=== PATIENT | male | born 1975 | race Caucasian/White ===

== ENCOUNTER 2016-07-03 15:02 | Emergency (ER) | payer SELFPAY | END 2016-07-03 18:02 | disposition home or self-care (01) | LOC: D.ER 15:02 | DX: G89.29 Other chronic pain (principal); M54.2 Cervicalgia; M54.5 Low back pain; F17.200 Nicotine dependence, unspecified, uncomplicated ==

== ENCOUNTER 2016-07-05 16:59 | Emergency (ER) | payer MEDICAID | END 2016-07-05 18:37 | disposition home or self-care (01) | LOC: D.ER 16:59 | DX: S20.219A Contusion of unspecified front wall of thorax, initial encounter (principal); W11.XXXA Fall on and from ladder, initial encounter; Y93.89 Activity, other specified; Y92.019 Unspecified place in single-family (private) house as the place of occurrence of the external cause; F17.200 Nicotine dependence, unspecified, uncomplicated ==

== ENCOUNTER 2016-07-08 17:17 | Emergency (ER) | payer MEDICAID | END 2016-07-08 18:43 | disposition home or self-care (01) | LOC: D.ER 17:17 | DX: M94.0 Chondrocostal junction syndrome [Tietze] (principal) ==

== ENCOUNTER 2016-07-20 18:51 | Emergency (ER) | payer MEDICAID | END 2016-07-21 00:15 | disposition home or self-care (01) | LOC: D.ER 18:51 | DX: M54.2 Cervicalgia (principal); M54.9 Dorsalgia, unspecified; W11.XXXA Fall on and from ladder, initial encounter; Y93.89 Activity, other specified; Y92.89 Other specified places as the place of occurrence of the external cause; G89.29 Other chronic pain; M94.0 Chondrocostal junction syndrome [Tietze]; F17.200 Nicotine dependence, unspecified, uncomplicated ==